=== PATIENT | male | born 1950 | race Caucasian/White ===

== ENCOUNTER 2017-04-14 05:48 | Day surgery (SDC) | payer MEDICARE, OTHER ==
--- NOTE | ~2017-04-14 | EGD ---
EGD REPORT [facility] [address] [place] [address] NAME: MILA QUINTANILLA III : 52 STATUS : [facility]#: [id number] AGE: 66 ADM/REG DATE : 04/14/17 MR#: [id number] REPORT SERV DATE: 04/20/17 DICTATED BY: KATH GRACE DATE: 04/20/17 REPORT STATUS : Draft [facility]: [facility] DATE: 04/20/17 End[facility] Center Patient Name: Mila Quintanilla Date of : 1950 Attending MD: KATH GRACE MD Procedure Date No Time: 04/14/2017 Procedure: Colonoscopy Indications: Screening for colorectal malignant neoplasm, This is the patient's first colonoscopy Referring MD: Uli Álvarez Medicines: See the Anesthesia note for documentation of the administered medications Complications: No immediate complications. Procedure: Pre-Anesthesia Assessment: - ASA Grade Assessment: III - A patient with severe systemic disease. After I obtained informed consent, the scope was passed under direct vision. Throughout the procedure, the patient's blood pressure, pulse, and oxygen saturations were monitored continuously. The PCF H190L [id number] was introduced through the anus and advanced to the cecum, identified by appendiceal orifice and ileocecal valve. The colonoscopy was performed without difficulty. The patient tolerated the procedure well. The quality of the bowel preparation was adequate. Findings: The perianal and digital rectal examinations were normal. Diverticula were found in the entire colon. Internal hemorrhoids were found during retroflexion and were medium-sized. A sessile polyp was found in the cecum. The polyp was small in size. The polyp was removed with a cold biopsy forceps. Resection and retrieval were complete. A sessile polyp was found in the ascending colon. The polyp was small in size. The polyp was removed with a cold biopsy forceps. Resection and retrieval were complete. Impression: - Diverticulosis in the entire examined colon. - Internal hemorrhoids. - One small polyp in the cecum. Resected and retrieved. - One small polyp in the ascending colon. Resected and retrieved. Recommendation: - Patient has a contact number available for EGD REPORT [address] [address] NAME: MILA QUINTANILLA III : 52 STATUS : [facility] PAT#: [id number] AGE: 66 ADM/REG DATE : 04/14/17 MR#: [id number] REPORT SERV DATE: 04/20/17 DICTATED BY: KATH GRACE DATE: 04/20/17 REPORT STATUS : Draft TRANSCRIBED BY: [employer] DATE: 04/20/17 emergencies. The signs and symptoms of potential delayed complications were discussed with the patient. Return to normal activities tomorrow. Written discharge instructions were provided to the patient. - Regular diet. - Continue present medications. - Repeat colonoscopy for surveillance based on pathology results. - FOR YOUR BIOPSY RESULTS: Please go to [email or web address] and register to receive your results via the portal. Your biopsy results will be posted there in about 7 to 10 days. IF you do not see result in 10 days, call office. - Restart Pradaxa today Procedure Code(s): --- Professional --- 33242, Colonoscopy, flexible, proximal to splenic flexure; with biopsy, single or multiple Diagnosis Code(s): --- Professional --- K64.8, Other hemorrhoids K57.30, Diverticulosis of large intestine without perforation or abscess without bleeding D12.2, Benign neoplasm of ascending colon D12.0, Benign neoplasm of cecum Z12.11, Encounter for screening for malignant neoplasm of colon CPT copyright 2013 [employer]. All rights reserved. The codes documented in this report are preliminary and upon pc tech review may be revised to meet current compliance requirements. Kath Grace MD KATH GRACE MD 04/14/2017 7:29 AM This report has been signed electronically. Number of Addenda: 0 Note Initiated On: 04/14/2017 6:49 AM Scope Withdrawal Time 0 hours 10 minutes 21 seconds [address] [place] [id number]
--- NOTE | ~2017-04-14 | EGD ---
EGD REPORT [facility] [address] [place] [address] NAME: MILA QUINTANILLA III : 52 STATUS : [facility] [place] [place] PAT#: [id number] AGE: 66 ADM/REG DATE : 04/14/17 MR#: [id number] REPORT SERV DATE: 04/14/17 DICTATED BY: KATH GRACE DATE: 04/14/17 REPORT STATUS : Draft TRANSCRIBED BY: [employer] [facility] DATE: 04/14/17 Endoscopy Center Patient Name: Mila Quintanilla Date of : 1950 Attending MD: KATH GRACE MD Procedure Date No Time: 04/14/2017 Procedure: Colonoscopy Indications: Screening for colorectal malignant neoplasm, This is the patient's first colonoscopy Referring MD: Uli Álvarez Medicines: See the Anesthesia note for documentation of the administered medications Complications: No immediate complications. Procedure: Pre-Anesthesia Assessment: - ASA Grade Assessment: III - A patient with severe systemic disease. After I obtained informed consent, the scope was passed under direct vision. Throughout the procedure, the patient's blood pressure, pulse, and oxygen saturations were monitored continuously. The PCF H190L [id number] was introduced through the anus and advanced to the cecum, identified by appendiceal orifice and ileocecal valve. The colonoscopy was performed without difficulty. The patient tolerated the procedure well. The quality of the bowel preparation was adequate. Findings: The perianal and digital rectal examinations were normal. Diverticula were found in the entire colon. Internal hemorrhoids were found during retroflexion and were medium-sized. A sessile polyp was found in the cecum. The polyp was small in size. The polyp was removed with a cold biopsy forceps. Resection and retrieval were complete. A sessile polyp was found in the ascending colon. The polyp was small in size. The polyp was removed with a cold biopsy forceps. Resection and retrieval were complete. Impression: - Diverticulosis in the entire examined colon. - Internal hemorrhoids. - One small polyp in the cecum. Resected and retrieved. - One small polyp in the ascending colon. Resected and retrieved. Recommendation: - Patient has a contact number available for EGD REPORT [address] [address] NAME: MILA QUINTANILLA III : [birth year] STATUS : [facility] [place] [place] PAT#: [id number] AGE: 66 ADM/REG DATE : 04/14/17 MR#: [id number] REPORT SERV DATE: 04/14/17 DICTATED BY: KATH GRACE DATE: 04/14/17 REPORT STATUS : Draft TRANSCRIBED BY: [employer] DATE: 04/14/17 emergencies. The signs and symptoms of potential delayed complications were discussed with the patient. Return to normal activities tomorrow. Written discharge instructions were provided to the patient. - Regular diet. - Continue present medications. - Repeat colonoscopy for surveillance based on pathology results. - FOR YOUR BIOPSY RESULTS: Please go to [email or web address] and register to receive your results via the portal. Your biopsy results will be posted there in about 7 to 10 days. IF you do not see result in 10 days, call office. - Restart Pradaxa today Procedure Code(s): --- Professional --- 01864, Colonoscopy, flexible, proximal to splenic flexure; with biopsy, single or multiple Diagnosis Code(s): --- Professional --- K64.8, Other hemorrhoids K57.30, Diverticulosis of large intestine without perforation or abscess without bleeding D12.2, Benign neoplasm of ascending colon D12.0, Benign neoplasm of cecum Z12.11, Encounter for screening for malignant neoplasm of colon CPT copyright 2013 [employer]. All rights reserved. The codes documented in this report are preliminary and upon fishing lure assembler review may be revised to meet current compliance requirements. Kath Grace MD KATH GRACE MD 04/14/2017 7:29 AM This report has been signed electronically. Number of Addenda: 0 Note Initiated On: 04/14/2017 6:49 AM Scope Withdrawal Time 0 hours 10 minutes 21 seconds [address] [place] [id number]
[~2017-04-14 05:48] MED LIST: FISH-EPA1000 MG PO; GLUCCHONDR PO; LOP50 PO; LOTENSIN HCT1 TA2 PO; MULTIPLE VIT PO; PLAQ200B PO; PRADAXA150 MG PO; VOLT50 PO; ZYRTEC ALLGY10 MG PO
== END 2017-04-14 23:59 | disposition home health service (06) ==
LOC: DMU 05:48
PROVIDERS: Internal Medicine Gastroenterology
PROC: 0DBK8ZX Excision of Ascending Colon, Via Natural or Artificial Opening Endoscopic, Diagnostic (ICD-10-PCS; 2017-04-14)
PROC: 0DBH8ZX Excision of Cecum, Via Natural or Artificial Opening Endoscopic, Diagnostic (ICD-10-PCS; principal; 2017-04-14 07:00)
DX: Z12.11 Encounter for screening for malignant neoplasm of colon (principal); D12.0 Benign neoplasm of cecum; D12.2 Benign neoplasm of ascending colon; K64.8 Other hemorrhoids; K57.30 Diverticulosis of large intestine without perforation or abscess without bleeding; I48.91 Unspecified atrial fibrillation; J45.909 Unspecified asthma, uncomplicated; I10 Essential (primary) hypertension; E78.00 Pure hypercholesterolemia, unspecified; M06.9 Rheumatoid arthritis, unspecified; Z79.899 Other long term (current) drug therapy; Z87.891 Personal history of nicotine dependence; Z90.49 Acquired absence of other specified parts of digestive tract; Z87.442 Personal history of urinary calculi; Z98.890 Other specified postprocedural states
CPT/HCPCS: 88305